=== PATIENT | female | born 1940 | race Caucasian/White ===

== ENCOUNTER 2018-04-09 09:41 | Outpatient (CLI) | payer MEDICARE, OTHER, SELFPAY ==
[2018-04-09] VITALS (10 sets, daily range): BP systolic 114–135; BP diastolic 55–87; PULSE 64–88; RESP 15–20; TEMP 36.1; O2SAT 98–100
--- NOTE | 2018-04-09 09:44 | DI.RAD.S_ITS ---
PROCEDURE: PAIN L INTERLAMINAR/CAUDAL INJ INDICATIONS: SPINAL STENOSIS FINDINGS: Fluoroscopic spot filming was performed to verify placement of spinal needles at the left L4-L5 level(s), as labeled on the films. Appropriate location(s) of the needle tip(s) was confirmed by injection of iodinated contrast. Dictated by: Jeremy Rowley M.D. on 04/09/2018 at 14:30 Approved by: Jeremy Rowley M.D. on 04/09/2018 at 14:30
[2018-04-09] MEDS: MIDAZOLAM 5 MG/5 ML VIAL IV (10:23)
[2018-04-09] MEDS: BUPIVACAINE 0.25% (PF) VIAL 2 ML INJ (10:27)
[2018-04-09] MEDS: IOPAMIDOL 15 ML VIAL 3 ML INJ (10:27)
[2018-04-09] MEDS: DEXAMETHASONE 10 MG/ML VIAL 20 MG INJ (10:28)
[2018-04-09] MEDS: methylPREDNISolone acetate 80 MG/ML VIAL INJ (10:28)
--- NOTE | 2018-04-09 10:30 | PC.NURSE ---
assisting pt off table and to post proc area in wheelchair in stable condition
--- NOTE | 2018-04-09 10:38 | P.PCN_ITS ---
Procedures Date/Time Date of procedure: 04/09/18 Time of procedure: 10:37 General Procedure description: PROVIDER: Mian Patel DO Operative Note PREOP DIAGNOSIS 1. HNP WITH RADICULAR FEATURES, 2. MULTILEVEL CENTRAL STENOSIS, POST OP DIAGNOSIS 1. HNP WITH RADICULAR FEATURES, 2. MULTILEVEL CENTRAL STENOSIS PROCEDURES 1. FLUORSCOPICALLY GUIDED CONTRAST CONTROLLED INTERLAMINAR EPIDURAL STEROID INJECTION -Para Left L4/5 PHYSICIAN: Mian Patel DO INDICATIONs: Ivonne is referred by for treatment of Bilateral Foraminal Stenosis R> L LE symptoms. FINDINGS Multilevel Central Spinal Stenosis with Nerve Root Compression DESCRIPTION OF PROCEDURE Fluoroscopically guided, contrast-controlled L4/5 translaminar epidural steroid injection. Following denial of allergy and review of potential side effects and complications, including, but not necessarily limited to, infection, allergic reaction, local tissue breakdown, temporary as well as permanent nerve injury, paralysis, stroke and possible , the patient indicated that the patient understood and agreed to proceed. An informed consent document was signed by the patient, witnessed by a nurse, and placed in the patient's chart. Additionally, other treatment options including modalities, medications, and physical therapy were reviewed with the patient. After review of previous anaesthesic history and IV conscious sedation the patient was deemed safe to proceed with todays procedure with IV conscious sedation as ASA class II designation. Safety time-out was performed to confirm patient ID, procedure to be performed and site of procedure. IV sedation was accomplished with a combination of 2mg was administered by the RN after DO order , titrated to patient comfort during the course of the procedure while the patient remained responsive to all verbal commands In the prone position, following sterile prep and drape of the lumbar region, the L4/5 translaminar space was identified fluoroscopically. The skin was anesthetized via a 25-gauge, 1.5-inch needle with 1% lidocaine solution. At this point, a 22-gauge short bevel spinal needle was atraumatically introduced and advanced under fluoroscopic guidance into the region of the L4/5 translaminar space. Depth was confirmed on lateral view. Radiological data, including multiple fluoroscopic views of the lumbar spine, reveal a spinal needle at the L4/5 translaminar space. Lateral views then show placement of the needle in the epidural space. Subsequent views show contrast material flowing superiorly and inferiorly in the epidural space. No vascular or intrathecal uptake is observed. At this point, using loss of resistance technique with saline and air, the epidural space was entered. This was confirmed following negative aspiration with injection of approximately 1.5 cc of Isovue 200, showing excellent epidural flow without vascular or intrathecal uptake. At this point, 1 cc of 1 % lidocaine solution combined with 3 cc or 20 mg of dexamethasone and 80mg Depo medrol was injected without incident. The patient tolerated the procedure well without signs or symptoms of complications prior to transfer to the recovery area continued monitoring without incident. The patient was then transferred to the recovery area where they were observed for an appropriate period of time after the injection. The patient reported a VAS score of 6 prior to the procedure and a post- procedure VAS of 0. Total Fluoroscopy Time: 11.8 seconds, 8.99 mGy Total Conscious Sedation Time: 24min POST OP INSTRUCTIONS The patient was provided a Pain Log to continue to record their response to the target-specific procedure prior to follow-up visit with their referring physician. Additionally, specific post-injection care instructions and a contact number to our office were provided if concerns arise regarding possible complications associated with the procedure are suspected. Mian Patel, Complications: none
--- NOTE | 2018-04-09 11:13 | PC.NURSE ---
received pt from procedure from Ita AGUILAR, pt a little groggy, awakens with voice. pt able to transfer with assistance from w/c to chair. Resumed monitoring.
--- NOTE | 2018-04-09 11:26 | PC.NURSE ---
pt still sedated but vital signs stable and pt maintaining airway.
--- NOTE | 2018-04-09 12:09 | PC.NURSE ---
pt has been awake and alert for approximately 30-40 minutes but we had trouble locating her , she had his cell phone to call him but couldn't remember his code to get into his phone and we were not able to reach him on her phone. After many attempts and calling for him overhead, he arrived at the main central registration and pt walked out from central registration with her
== END 2018-04-09 12:13 ==
PROVIDERS: PCP Internal Medicine; Visit Provider Physical Medicine & Rehabilitation
DX: M51.16 Intervertebral disc disorders with radiculopathy, lumbar region (principal); M48.061 Spinal stenosis, lumbar region without neurogenic claudication
CPT/HCPCS: 62323; 99152; J1040; J1100; J2250

== ENCOUNTER 2018-10-28 09:28 | Outpatient (CLI) | payer MEDICARE, OTHER, SELFPAY ==
[2018-10-28] VITALS (8 sets, daily range): BP systolic 98–166; BP diastolic 36–85; PULSE 56–70; RESP 14–18; TEMP 36.1; O2SAT 94–100
--- NOTE | 2018-10-28 09:30 | DI.RAD.S_ITS ---
PROCEDURE: PAIN L/S TRANSFORAMINAL INJECT INDICATIONS: SPINAL STENOSIS FINDINGS: Fluoroscopic spot filming was performed to verify placement of spinal needles at the L4-L5 level(s), as labeled on the films. Appropriate location(s) of the needle tip(s) was confirmed by injection of iodinated contrast. Dictated by: Jeremy Rowley M.D. on 10/28/2018 at 11:26 Approved by: Jeremy Rowley M.D. on 10/28/2018 at 11:26
[2018-10-28] MEDS: fentaNYL 100 MCG/2 ML INJ 50 MCG IV (10:41)
[2018-10-28] MEDS: MIDAZOLAM 5 MG/5 ML VIAL IV (10:41)
[2018-10-28] MEDS: BETAMETHASONE 30 MG/5 ML MDV 6 MG INJ (10:48)
[2018-10-28] MEDS: DEXAMETHASONE 10 MG/ML VIAL 20 MG INJ (10:48)
[2018-10-28] MEDS: BUPIVACAINE 0.25% (PF) VIAL 2 ML INJ (10:48)
[2018-10-28] MEDS: IOPAMIDOL 15 ML VIAL 3 ML INJ (10:48)
--- NOTE | 2018-10-28 10:58 | P.PCN_ITS ---
Procedures Date/Time Date of procedure: 10/28/18 Time of procedure: 10:56 General Procedure description: PREOP DIAGNOSIS 1. FORMAINAL STENOSIS WITH LE SYMPTOMS POST OP DIAGNOSIS 1. FORMAINAL STENOSIS WITH LE SYMPTOMS PROCEDURES 1. FLUOROSCOPICALLY GUIDED CONTRAST CONTROLLED TRANSFORAMINAL EPIDURAL STEROID INJECTION - LEFT L4/5 PHYSICIAN: Mian Patel DO INDICATIONS: Ivonne is referred by for treatment of Foraminal Stenosis with Left LE Symptoms FINDINGS Foraminal Nerve Root Compression secondary to disc disease and facet hypertrophy DESCRIPTION OF PROCEDURE: Following denial of allergy and review of potential side effects and complications, including, but not necessarily limited to, infection, allergic reaction, local tissue breakdown, stroke, temporary or permanent nerve injury, paralysis, and possible , the patient indicated that the patient understood and agreed to proceed. An informed consent document was signed by the patient, witnessed by a nurse, and placed in the patient's chart. Additionally, other treatment options including medications, modalities, and physical therapy were reviewed with the patient. After review of previous anaesthesic history and IV conscious sedation the patie nt was deemed safe to proceed with todays procedure with IV conscious sedation as ASA class II designation. Safety time-out was performed to confirm patient ID, procedure to be performed and site of procedure. IV sedation was accomplished with a combination of 2mg of Versed and 50mcg Fentanyl administered by the RN after DO order, titrated to patient comfort during the course of the procedure while the patient remained responsive to all verbal commands In the prone position following sterile prep and drape of the lumbar region, the left L4/5 posterior neuroforamen was identified fluoroscopically. The skin was anesthetized via a 25-gauge 1.5-inch needle with 1% lidocaine solution. At this point, a 25-gauge 3.5-inch spinal needle was atraumatically introduced and advanced under fluoroscopic guidance through the posterior left L4/5 neuroforamen to approximately the anterior aspect of the canal. Depth was confirmed on lateral view. Following negative aspiration, injection of approxim ately 1.5 cc of Isovue 200 under live fluoroscopy in the AP view confirmed excellent flow along the nerve root, into the epidural space without vascular or intrathecal uptake observed Radiological data, including multiple fluoroscopic views of the lumbosacral spine, reveal a spinal needle at the left L4/5 posterior neuroforamen. Subsequent views show flow of contrast material flowing superiorly and inferiorly along the nerve root confirming epidural flow. Subsequently, a test dose of 1.5 cc of 1% lidocaine solution was administered and patient was observed for two minutes for signs or symptoms of complications, including abdominal pain, shortness of breath, bilateral upper or lower extremity weakness, nausea and vomiting, prior to steroid injection. At this point, a total of 2cc or 20mg of dexamethasone was injected without incident. The procedure tolerated the procedure well without signs or symptoms of complications prior to transfer to the recovery area continued monitoring without incident. The patient was then transferred to the recovery area where they were observed for an appropriate time after the injection. The patient reported a VAS score of 7 prior to the procedure and a post- procedure VAS of 0. Total Fluoroscopy Time: 20.9 seconds Total Conscious Sedation Time: 24min POST OP INSTRUCTIONS The patient was provided a Pain Log to continue to record their response to the target-specific procedure prior to follow-up visit with their referring physician. Additionally, specific post-injection care instructions and a contact number to our office were provided if concerns arise regarding possible complications associated with the procedure are suspected. Mian Patel DO Complications: none
--- NOTE | 2018-10-28 11:48 | PC.NURSE ---
pt returned from post procedure sleepy but able to follow commands, able to get into chair with 2 person minimal assist. Resumed monitoring from Ita AGUILAR.
== END 2018-10-28 11:59 ==
LOC: RAD 09:29
PROVIDERS: PCP Internal Medicine; Visit Provider Physical Medicine & Rehabilitation
DX: M48.061 Spinal stenosis, lumbar region without neurogenic claudication (principal); M51.16 Intervertebral disc disorders with radiculopathy, lumbar region
CPT/HCPCS: 64483; 99152; J0702; J1100; J2250; J3010